=== PATIENT | male | born 2000 | race Two or more races ===

== ENCOUNTER 2024-01-02 07:30 | Outpatient (CLI) | payer OTHER ==
--- NOTE | 2024-01-03 15:43 | MRI Report ---
Knee RT WO CLINICAL INFORMATION: 23 years of age, Male, R KNEE EFFUSION. COMPARISON: None Technique: Multisequence, multiplanar MRI of the right knee was performed without intravenous contras t. FINDINGS: Menisci: The medial and lateral menisci, including the roots, are intact. Cruciate ligaments: The anterior and posterior cruciate ligaments are intact. MCL/LCL: The MCL is unremarkable. The biceps femoris tendon is unremarkable. The fibular collateral ligament is unremarkable. The iliotibial band is intact. The popliteus muscle and tendon also appear intact. Extensor mechanism: The quadricep tendon is unremarkable. The patella tendon is unremarkable. Patellofemoral joint: Alignment within the patellofemoral joint is normal. The patellofemoral ligame nts are intact. Cartilage and bone marrow signal within the patella and femoral trochlea are normal. Cartilage and bone: Cartilage of the medial and lateral compartment are well maintained. No marrow ed andi. No acute fracture. Miscellaneous: No significant joint effusion. No popliteal cyst. No intra-articular bodies are ident ified. Normal muscle signal intensity and morphology. No vascular anomaly. IMPRESSION: Normal right knee MRI. No significant knee effusion. Reviewed by: Janet Guadalupe MD on 01/03/2024 3:41 PM PDT Approved by: Janet Guadalupe MD on 01/03/2024 3:41 PM PDT Station ID: [id number]
== END 2024-01-02 07:31 | disposition home or self-care (01) ==
LOC: DI 07:30
DX: M25.461 Effusion, right knee (principal)